=== PATIENT | female | born 1950 | race Caucasian/White ===

== ENCOUNTER → 2018-08-03 | Outpatient (CLI) | payer MEDICARE, OTHER ==
[~2018-08-03] MED LIST: BUDEPRION SR150 M1 PO; CLEOCIN HCL300 MG PO; FLEXERIL 1010 MG/TAB PO
== END ==
LOC: MC.RAD 10:08
DX: Z12.31 Encounter for screening mammogram for malignant neoplasm of breast (principal); N64.89 Other specified disorders of breast

== ENCOUNTER → 2018-08-09 | Outpatient (CLI) | payer MEDICARE, OTHER | LOC: MC.RAD 12:49 | DX: N64.89 Other specified disorders of breast (principal) | CPT/HCPCS: G0279 ==

== ENCOUNTER → 2019-02-22 | Outpatient (CLI) | payer MEDICARE, OTHER | LOC: MC.RAD 13:23 | DX: N64.89 Other specified disorders of breast (principal); R92.8 Other abnormal and inconclusive findings on diagnostic imaging of breast | CPT/HCPCS: G0279 ==

== ENCOUNTER → 2019-03-06 | Outpatient (CLI) | payer MEDICARE, OTHER | LOC: MC.RAD 10:10 | DX: C50.911 Malignant neoplasm of unspecified site of right female breast (principal) ==